=== PATIENT | male | born 1945 | race Caucasian/White ===

== ENCOUNTER 2018-05-12 21:45 | Inpatient (IN) | payer MEDICARE, OTHER ==
[~2018-05-12] VITALS: Ht 185.4 cm; Wt 97.6 kg
--- NOTE | 2018-05-12 23:30 | NUR ---
t to room from lobby
[2018-05-13] MEDS ORDERED: SODIUM CHLORIDE 0.9% 1,000 ML IV ONE (00:31)
[2018-05-13 00:59] LABS: BASOPHILS # (AUTO) 0.01 x10^3/uL (0-0.1); BASOPHILS % (AUTO) 0 % (0-1); EOSINOPHILS # (AUTO) 0.08 x10^3/uL (0-0.4); EOSINOPHILS % (AUTO) 1 % (1-7); LYMPHOCYTES # (AUTO) 1.37 x10^3/uL (1-3.4); LYMPHOCYTES % (AUTO) 16 % (22-44); MD NO; MEAN CORPUSCULAR HEMOGLOBIN 31.9 pg (27.5-34.5); MEAN CORPUSCULAR HGB CONC 34.2 g/dL (33.2-36.2); MEAN CORPUSCULAR VOLUME 93.4 fL (81-97); MEAN PLATELET VOLUME 9.4 fL (7.4-10.4); MONOCYTES # (AUTO) 0.45 x10^3/uL (0.2-0.8); MONOCYTES % (AUTO) 5 % (2-9); NEUTROPHILS # (AUTO) 6.77 x10^3/uL (1.8-6.8); NEUTROPHILS % (AUTO) 78 % (42-75); PLATELET COUNT 139 x10^3/uL (130-400); RED BLOOD COUNT 4.81 x10^6/uL (4.38-5.82); RED CELL DISTRIBUTION WIDTH 14.1 % (9.4-14.8)
[2018-05-13] MEDS ORDERED: SODIUM CHLORIDE FLUSH 10ML SYR IVF ONE (01:00)
[2018-05-13] MEDS ORDERED: MORPHINE SULFATE 4 MG/ML, 1ML IVPush PRN (01:00)
[2018-05-13] MEDS ORDERED: hydrALAzine 20 MG/ML, 1ML IVPush PRN (01:00)
[2018-05-13] MEDS ORDERED: BISACODYL 10 MG SUPP PR PRN (01:00)
[2018-05-13] MEDS ORDERED: ONDANSETRON 2MG/ML, 2ML IVPush PRN (01:00)
[2018-05-13] MEDS ORDERED: DEXTROSE 50%, 50ML SYRINGE IVPush PRN (01:00)
[2018-05-13] MEDS ORDERED: DEXTROSE 4 GM TAB.CHEW PO PRN (01:00)
[2018-05-13] MEDS ORDERED: GLUCAGON 1 MG IM PRN (01:00)
[2018-05-13 01:10] LABS: INTERNATIONAL NORMALIZED RATIO 1.21 (0.93-1.1); PROTHROMBIN TIME 12.7 Seconds (9.6-11.5)
[2018-05-13 01:13] LABS: ALANINE AMINOTRANSFERASE 37 U/L (12-78); ALBUMIN 3.4 g/dL (3.4-5.0); ANION GAP 3 mmol/L (5-15); CALCIUM 8.5 mg/dL (8.5-10.1); CHLORIDE 108 mmol/L (98-107); CREATININE 0.93 mg/dL (0.7-1.3)
[2018-05-13 01:15] LABS: ALKALINE PHOSPHATASE 99 U/L (45-117); BILIRUBIN,TOTAL 0.9 mg/dL (0.2-1.0); TOTAL PROTEIN 7.4 g/dL (6.4-8.2)
[2018-05-13] MEDS ORDERED: ONDANSETRON 2MG/ML, 2ML ONE (01:27)
[2018-05-13] MEDS ORDERED: MORPHINE SULFATE 4 MG/ML, 1ML ONE (01:27)
[2018-05-13] MEDS: SODIUM CHLORIDE 0.9% 1,000 ML IV SCH ×3 (02:40→21:15)
[2018-05-13] MEDS: INSULIN LISPRO 100 UNITS/ML, PEN SQ-INSULIN SCH ×5 (03:00→22:34)
[2018-05-13 03:31] VITALS: BP 152/75
[2018-05-13] MEDS: morphine SULFATE 10 MG/ML, 1ML IVPush PRN ×6 (04:44→21:06)
[2018-05-13 07:40] VITALS: BP 136/80
[2018-05-13] MEDS: SODIUM CHLORIDE FLUSH 10ML SYR IVF SCH ×2 (09:00→21:15)
[2018-05-13] MEDS ORDERED: LOSA1TAB19 PO (12:18)
[2018-05-13] MEDS ORDERED: FINA5TAB4 PO (12:18)
[2018-05-13] MEDS ORDERED: TAMS0.4C2 PO (12:18)
[2018-05-13] MEDS ORDERED: INSU100V8 SQ (12:18)
[2018-05-13] MEDS ORDERED: METO1TAB7 PO (12:18)
[2018-05-13 14:57] VITALS: BP 139/78
[2018-05-13] MEDS: METOPROLOL TARTRATE 50 MG TABLET PO SCH (18:00)
[2018-05-13] MEDS: HYDROCHLOROTHIAZIDE 25 MG TABLET PO SCH (18:00)
[2018-05-13 21:30] VITALS: BP 166/62
[2018-05-13] MEDS: INSULIN GLARGINE 100 UNITS/ML, PEN SQ-INSULIN SCH (22:33)
[2018-05-14] MEDS: morphine SULFATE 10 MG/ML, 1ML IVPush PRN ×4 (00:01→08:12)
[2018-05-14 02:42] VITALS: BP 159/76
[2018-05-14] MEDS: INSULIN LISPRO 100 UNITS/ML, PEN SQ-INSULIN SCH ×4 (03:30→22:48)
[2018-05-14] MEDS: METOPROLOL TARTRATE 50 MG TABLET PO SCH (06:00)
[2018-05-14] MEDS: HYDROCHLOROTHIAZIDE 25 MG TABLET PO SCH (06:00)
[2018-05-14] MEDS: SODIUM CHLORIDE 0.9% 1,000 ML IV SCH ×3 (07:27→22:59)
[2018-05-14 08:10] VITALS: BP 157/69
[2018-05-14] MEDS ORDERED: METO37.5 PO (08:30)
[2018-05-14] MEDS: HYDROCHLOROTHIAZIDE 12.5 MG CAPSULE PO SCH (09:00)
[2018-05-14] MEDS: LOSARTAN 50MG TABLET PO SCH (09:00)
[2018-05-14] MEDS: FINASTERIDE 5 MG TABLET PO SCH (09:00)
[2018-05-14] MEDS: SODIUM CHLORIDE FLUSH 10ML SYR IVF SCH ×2 (09:00→22:49)
[2018-05-14] MEDS: TAMSULOSIN 0.4 MG CAP.ER.24H PO SCH (09:00)
[2018-05-14] MEDS ORDERED: DEXAMETHASONE 4 MG/ML, 1ML ONE (10:17)
[2018-05-14] MEDS ORDERED: PHENYLEPHRINE 10 MG/ML ONE (10:17)
[2018-05-14] MEDS ORDERED: EPHEDRINE 50 MG/ML, 1ML ONE (10:17)
[2018-05-14] MEDS ORDERED: FENTANYL PF 250 MCG/5ML ONE (12:35)
[2018-05-14] MEDS ORDERED: MIDAZOLAM 1 MG/ML, 2ML ONE (12:35)
[2018-05-14] MEDS ORDERED: BUPIVACAINE/PF-EPI 0.5% 1:200K ONE (12:54)
[2018-05-14 13:00] VITALS: BP 165/77
[2018-05-14] MEDS ORDERED: ONDANSETRON ODT 8 MG ONE (13:27)
[2018-05-14] MEDS ORDERED: ACETAMINOPHEN 500 MG TABLET ONE (13:28)
[2018-05-14] MEDS ORDERED: ACETAMINOPHEN 500 MG TABLET PO ONE (13:30)
[2018-05-14] MEDS ORDERED: ONDANSETRON ODT 8 MG PO ONE (13:30)
[2018-05-14] MEDS ORDERED: GABAPENTIN 300 MG CAPSULE PO ONE (13:30)
[2018-05-14] MEDS ORDERED: BUPIVACAINE/PF 0.5% ONE (14:39)
[2018-05-14] MEDS ORDERED: CEFAZOLIN 1,000 MG ONE (14:39)
[2018-05-14] MEDS ORDERED: ONDANSETRON 2MG/ML, 2ML ONE (14:39)
[2018-05-14] MEDS ORDERED: PROPOFOL 10 MG/ML, 20ML ONE (14:39)
[2018-05-14] MEDS ORDERED: OXYcodone 5 MG/5 ML ORAL.SOL UDC ONE (16:56)
[2018-05-14 17:50] VITALS: BP 148/82
[2018-05-14] MEDS ORDERED: METOPROLOL TARTRATE 25 MG TABLET PO SCH (18:30)
[2018-05-14 19:16] VITALS: BP 147/74
[2018-05-14 22:45] VITALS: BP 168/80
[2018-05-14] MEDS: METOPROLOL TARTRATE 25 MG TABLET PO SCH (22:47)
[2018-05-14] MEDS: INSULIN GLARGINE 100 UNITS/ML, PEN SQ-INSULIN SCH (22:49)
[2018-05-15 01:02] VITALS: BP 168/80
[2018-05-15] MEDS ORDERED: METOPROLOL TARTRATE 25 MG TABLET PO SCH (06:00)
[2018-05-15 06:10] VITALS: BP 140/72
[2018-05-15] MEDS: METOPROLOL TARTRATE 25 MG TABLET PO SCH ×2 (06:23→18:16)
[2018-05-15 07:00] VITALS: BP 129/71
[2018-05-15] MEDS: INSULIN LISPRO 100 UNITS/ML, PEN SQ-INSULIN SCH ×4 (07:29→20:52)
[2018-05-15] MEDS: SODIUM CHLORIDE 0.9% 1,000 ML IV SCH ×2 (08:34→18:13)
[2018-05-15] MEDS: LOSARTAN 50MG TABLET PO SCH (08:35)
[2018-05-15] MEDS: HYDROCHLOROTHIAZIDE 12.5 MG CAPSULE PO SCH (08:35)
[2018-05-15] MEDS: TAMSULOSIN 0.4 MG CAP.ER.24H PO SCH (08:35)
[2018-05-15] MEDS: FINASTERIDE 5 MG TABLET PO SCH (08:36)
[2018-05-15] MEDS: SODIUM CHLORIDE FLUSH 10ML SYR IVF SCH ×2 (08:38→20:52)
[2018-05-15 10:01] LABS: BASOPHILS # (AUTO) 0.02 x10^3/uL (0-0.1); BASOPHILS % (AUTO) 0 % (0-1); EOSINOPHILS % (AUTO) 0 % (1-7); HEMOGRAM NOTE RECHECKED; LYMPHOCYTES # (AUTO) 1.03 x10^3/uL (1-3.4); LYMPHOCYTES % (AUTO) 12 % (22-44); MD NO; MEAN CORPUSCULAR HEMOGLOBIN 31.2 pg (27.5-34.5); MEAN CORPUSCULAR HGB CONC 33.4 g/dL (33.2-36.2); MEAN CORPUSCULAR VOLUME 93.3 fL (81-97); MEAN PLATELET VOLUME 8.4 fL (7.4-10.4); MONOCYTES # (AUTO) 0.54 x10^3/uL (0.2-0.8); MONOCYTES % (AUTO) 7 % (2-9); NEUTROPHILS # (AUTO) 6.71 x10^3/uL (1.8-6.8); NEUTROPHILS % (AUTO) 81 % (42-75); PLATELET COUNT 112 x10^3/uL (130-400); RED BLOOD COUNT 3.71 x10^6/uL (4.38-5.82); RED CELL DISTRIBUTION WIDTH 13.9 % (9.4-14.8)
[2018-05-15 10:05] LABS: ANION GAP 6 mmol/L (5-15); CALCIUM 8.2 mg/dL (8.5-10.1); CHLORIDE 108 mmol/L (98-107); CREATININE 0.87 mg/dL (0.7-1.3)
[2018-05-15 13:33] VITALS: BP 147/74
[2018-05-15] MEDS: ACETAMINOPHEN 325 MG TABLET PO PRN (17:00)
[2018-05-15 19:44] VITALS: BP 129/60
[2018-05-15] MEDS: INSULIN GLARGINE 100 UNITS/ML, PEN SQ-INSULIN SCH (20:51)
[2018-05-16 01:44] VITALS: BP 132/76
[2018-05-16] MEDS: ACETAMINOPHEN 325 MG TABLET PO PRN (03:24)
[2018-05-16] MEDS: SODIUM CHLORIDE 0.9% 1,000 ML IV SCH ×2 (03:25→11:35)
[2018-05-16 06:03] VITALS: BP 125/65
[2018-05-16] MEDS: METOPROLOL TARTRATE 25 MG TABLET PO SCH (06:05)
[2018-05-16] MEDS: INSULIN LISPRO 100 UNITS/ML, PEN SQ-INSULIN SCH ×2 (06:12→11:35)
[2018-05-16] MEDS: morphine SULFATE 10 MG/ML, 1ML IVPush PRN (06:27)
[2018-05-16] MEDS: LOSARTAN 50MG TABLET PO SCH (07:54)
[2018-05-16] MEDS: HYDROCHLOROTHIAZIDE 12.5 MG CAPSULE PO SCH (07:54)
[2018-05-16] MEDS: FINASTERIDE 5 MG TABLET PO SCH (07:54)
[2018-05-16] MEDS: TAMSULOSIN 0.4 MG CAP.ER.24H PO SCH (07:56)
[2018-05-16] MEDS: SODIUM CHLORIDE FLUSH 10ML SYR IVF SCH (07:56)
[2018-05-16] MEDS ORDERED: OXYcodone IR 5MG TABLET PO PRN (09:30)
[2018-05-16 13:42] VITALS: BP 142/66
[2018-05-16] MEDS ORDERED: OXYC5CAP2 PO (14:01)
[2018-05-16] MEDS ORDERED: DOCU-131 PO (14:02)
== END 2018-05-16 14:36 | disposition home or self-care (01) | DRG 493 ==
LOC: ED 05-13 00:47 → EDIP 05-13 00:52 → 4NOR 05-13 01:52 → DCLOUNGE 05-16 14:09
PROVIDERS: ADMIT Hospitalist; ATTEND Hospitalist
PROC: 0QSJ04Z Reposition Right Fibula with Internal Fixation Device, Open Approach (ICD-10-PCS; 2018-05-14)
PROC: 0QSG04Z Reposition Right Tibia with Internal Fixation Device, Open Approach (ICD-10-PCS; 2018-05-14)
PROC: 0QSG06Z Reposition Right Tibia with Intramedullary Internal Fixation Device, Open Approach (ICD-10-PCS; principal; 2018-05-14 13:45)
DX: S82.841A Displaced bimalleolar fracture of right lower leg, initial encounter for closed fracture (principal); R71.0 Precipitous drop in hematocrit; I10 Essential (primary) hypertension; N40.0 Benign prostatic hyperplasia without lower urinary tract symptoms; E11.9 Type 2 diabetes mellitus without complications; Z60.2 Problems related to living alone; F10.21 Alcohol dependence, in remission; R00.1 Bradycardia, unspecified; V29.9XXA Motorcycle rider (driver) (passenger) injured in unspecified traffic accident, initial encounter; Z79.4 Long term (current) use of insulin; Y93.89 Activity, other specified; Y92.89 Other specified places as the place of occurrence of the external cause; Y99.8 Other external cause status
CPT/HCPCS: 36415; 71045; 76000; 80048; 80053; 82962; 85025; 85610; 85730; 93005; 96374; 96375; 99285; C1713; G0378; J0690; J1100; J2250; J2405; J2704; J3010; J3490; Q0162; J1815; J2270; J2370; J7030